=== PATIENT | male | born 1945 | race African-American/Black ===

== ENCOUNTER 2016-07-26 05:28 | Day surgery (SDC) | payer MEDICARE, OTHER ==
[2016-07-25 12:50] LABS: HEMATOCRIT 51.2 % (42.0-54.0); HEMOGLOBIN 17.9 g/dL (13.5-17.5); MCH 30.9 pg (26.0-34.0); MCV 88.3 fL (80.0-100.0); MEAN PLATELET VOLUME 9.8 fL (7.4-10.4); RBC 5.8 10x6/uL (4.20-6.10); RDW 13.5 % (11.5-14.5); WBC 6.9 10x3/uL (4.8-10.8)
[2016-07-25 12:56] LABS: ANION GAP 11.7 mmol/L (8-16); CALCIUM 9.3 mg/dL (8.5-10.1); CARBON DIOXIDE 32.8 mmol/L (21.0-32.0); CREATININE - SERUM 1.8 mg/dL (0.6-1.3); POTASSIUM - SERUM 3.5 mmol/L (3.5-5.1)
[~2016-07-26] VITALS: Ht 177.8 cm; Wt 101.8 kg
[2016-07-26] VITALS (7 sets, daily range): BP systolic 139–173; BP diastolic 40–103; BMI 32.2
--- NOTE | ~2016-07-26 | OP ---
PATIENT NAME: CITLALI BOWSER MEDICAL RECORD: [id number] :49 LOCATION:[facility] ADMISSION DATE: SURGEON: LORY ZHOU MD DATE OF OPERATION: 07/26/2016 PREOPERATIVE DIAGNOSIS: Lumbar spinal stenosis and foraminal stenosis at L4-5 right. PROCEDURES: Lumbar laminotomy, medial facetectomy and foraminotomy L4-5 right with medial facetectomy with the METRx retractor and bilateral foraminotomies at L4-5 with sublaminar decompression. DESCRIPTION AND TECHNIQUE: After induction of general endotracheal anesthesia, the patient was rolled prone on a Davon frame. Lumbar spine was prepped and draped in usual sterile fashion. Fluoroscopic x-ray and spinal needle localized at L4-5 interspace on the right side. A stab incision was carried out with a #11 blade. Series of dilators were used to advance a METRx retractor to the L4-5 interspace on the right side. That was confirmed with fluoroscopic x-ray. A microscope and Midas Oliver drill were used to perform laminotomy, medial facetectomy and foraminotomy at L4-5 on the right. Hypertrophied ligamentum flavum was removed with Cloward rongeurs. A foraminotomy was carried out with Cloward rongeurs on the right side with removal of hypertrophied ligamentum flavum. Next, the METRx retractor was tilted to the opposite side. The spinous process was undermined with the Midas-Oliver drill. Hypertrophied ligamentum flavum was moved across the midline and into the foraminotomy on the opposite side. Both L5 nerve roots and L4 nerve roots were decompressed at the conclusion of procedure. Meticulous hemostasis was maintained throughout the wound. Wound was irrigated with copious amounts of Ancef irrigant solution. The fascia was closed with a 2-0 Vicryl suture, the subdermal layer was closed with 3-0 Vicryl suture and the skin was closed with taya. Sterile dressing was applied to the wound. The patient was awakened in good condition, taken to recovery. All counts were reported as correct. Estimated blood loss was minimal. TRANSINT:[id number] Voice Confirmation ID: [id number] DOCUMENT ID: [id number] LORY ZHOU MD CC: [id number] DICTATION DATE: 09/03/161822 RISK DEVELOPER: 09/04/16 0232 [facility] [place] 07/28/16 [facility] [address] [place] [address]
[~2016-07-26 05:28] MED LIST: CO Q-10200 MG PO; DICLOFENAC SODI50 MG PO; ENDOCET 10-3251 TAB PO; FLECAINIDE ACE100 MG PO; MAXZIDE 75/501 TAB PO; NORCO 7.5/325 T1 TA1 PO; NORVASC5 MG PO; VALIUM10 MG PO; ZOCOR20 MG PO
--- NOTE | 2016-07-26 20:15 | NUR ---
PT RECEIVED FROM RECOVERY. VITAL SIGNS OBTAINED AND RECORDED. PT ALERT AND ORIENTED X4. AT BEDSIDE. PT RECEIVED FROM RECOVERY WITH RESET MERCHANDISER PUMP ORDERED 2MG Q8HR WITH NO LOCKOUT. CALLED ETHNOLOGY TEACHER NUMBER FOR DR. ZHOU TO RECEIVE CLARIFICATION, INFORMED THAT DR. BAZAN IS ETHNOLOGY TEACHER FOR DR. ZHOU, BUT TO CALL ER PHYSICIAN. CALLED ER PHYSICIAN REGARDING RESET MERCHANDISER PUMP ORDERS, SPOKE WITH DR. FARIAS WHO CHANGED ORDERS FOR RESET MERCHANDISER PUMP. PT STATES RESET MERCHANDISER PUMP TO BE EFFECTIVE. DENIES ANY NEEDS AT THIS TIME. CALL LIGHT AND H2O IN PT REACH. BED IN LOW POSITION. SIDE RAILS UP X2.
--- NOTE | 2016-07-26 21:30 | NUR ---
RECEIVED CALL FROM DR. ZHOU REGARDING PT. INFORMED DR. ZHOU OF ART PSYCHOTHERAPIST PUMP ORDER CLARIFICATION PER DR. FARIAS, NO NEW ORDERS RECEIVED REGARDING ART PSYCHOTHERAPIST PUMP. NEW ORDER RECEIVED FOR DECADRON 6MG IV Q6HR. PT NOTIFIED OF NEW ORDER.
--- NOTE | 2016-07-26 22:00 | NUR ---
PT'S REPORTS BLEEDING FROM DRESSING TO LOWER BACK. DRIED BLOOD SPOTS NOTED TO SHEETS WHERE PT WAS LAYING. NO ACTIVE BLEEDING NOTED AT THIS TIME. DRESSING REINFORCED AT THIS TIME.
[2016-07-27] VITALS (8 sets, daily range): BP systolic 118–152; BP diastolic 68–103; Ht 177.8 cm; Wt 101.8 kg
--- NOTE | 2016-07-27 07:50 | NUR ---
SPOKE WITH DR. ZHOU. STATES PATIENT NEEDS TO AMBULATE IN HALLWAYS. NEW ORDER FOR PHYSICAL THERAPY.
--- NOTE | 2016-07-27 19:49 | NUR ---
DRESSING CHANGED ON BACK SURGICAL SITE WITH A BORDER GUMIE. x2 DRESSINGS REMOVED THAT WERE MODERATELY SATURATED. FRIENDS/ FAMILY IN ROOM VISITING. NO NEEDS NOTED BY PATIENT AT THIS TIME.
--- NOTE | 2016-07-27 22:00 | NUR ---
DENIES NEEDS AT THIS TIME. DRESSING TO BACK C/D/I. CALL LIGHT IN REACH, RESPIRATIONS EVEN AND NON LABORED. WILL CONTINUE WITH PLAN OF CARE.
[2016-07-28 04:00] VITALS: BP 138/62
--- NOTE | 2016-07-28 07:00 | NUR ---
REPORT RECIEVED ASSUMED CARE. PATIENT IN BED WITH IV INTACT. NO COMPLAINTS, CALL LIGHT WITHIN REACH.
--- NOTE | 2016-07-28 08:00 | NUR ---
PATIENT UP TO SHOWER WITH RN ASSISTANCE. DRESSING COVERED AT THIS TIME. IV COVERED. NO COMPLAINTS AT THIS TIME. CALL LIGHT WITHIN REACH.
--- NOTE | 2016-07-28 08:50 | NUR ---
PATIENT DRESSING CHANGED TO BACK AT THIS TIME. INCISION INTACT. SMALL AMOUNT OF PINK DRAINAGE. NO SIGNS OF INFECTION. CALL LIGHT WITHIN REACH.
[2016-07-28 08:55] VITALS: BP 135/73
[2016-07-28 09:45] VITALS: BP 144/85
--- NOTE | 2016-07-28 12:00 | NUR ---
PATIENT RECIEVED DISCHARGE INSTRUCTIONS. VERBALIZED UNDERSTANDING. RECIEVED PRESCRIPTIONS FROM PHYSICIAN YESTERDAY. TOOK THEM HOME. IV REMOVED WITH CATH TIP INTACT. NO QUESTIONS AT THIS TIME. CALL LIGHT WITHIN REACH.
--- NOTE | 2016-07-28 13:37 | NUR ---
ORDER RECEIVED: Hand written order for rolling walker received. CM received call from Susannah GRIGGS stating patient had an order for walker and no preference for provider. CM contacted [facility] and is waiting a return call for delivery of walker. Za Jones RN, [facility] [phone]
--- NOTE | 2016-07-28 14:03 | NUR ---
Patient to go to [employer] to pickle solution maker rolling walker as [employer] is having trouble getting in touch with their custom van converter. Spouse is transporting patinet home and will be happy to go by [facility] to get the walker. Spoke to Mary Lou GRIGGS and infomred her of this and she will go dc the patient. Za Jones RN, [facility] [phone]
== END 2016-07-28 15:28 | disposition home or self-care (01) ==
LOC: D.MS 05:28 → D.OPS 05:28 → D.PAN 13:30 → D.OPS 14:00 → D.MS 18:52 → D.OPS 07-28 15:28
PROVIDERS: Anesthesiology
DX: M48.06 Spinal stenosis, lumbar region (principal); Z01.812 Encounter for preprocedural laboratory examination

== ENCOUNTER 2017-03-05 01:31 | Inpatient (IN) | payer MEDICARE, OTHER ==
[~2017-03-05] VITALS: Ht 177.8 cm; Wt 89.8 kg
[2017-03-05 02:05] LABS: BASOPHILS 0.2 % (0-2); EOSINOPHILS 3.8 % (0-7); HEMATOCRIT 37.9 % (42.0-54.0); IMMATURE GRANULOCYTES 0.3 % (0-5); LYMPHOCYTES 28.2 % (15-50); MCH 29.2 pg (26.0-34.0); MCHC 34.3 g/dL (31.0-37.0); MCV 85.2 fL (80.0-100.0); MONOCYTES 6.1 % (2-11); NEUTROPHILS 61.4 % (40-80); PLATELET COUNT 230 10x3/uL (130-400); RBC 4.45 10x6/uL (4.20-6.10); RDW 13.8 % (11.5-14.5); WBC 6.3 10x3/uL (4.8-10.8)
[2017-03-05 02:16] LABS: ALBUMIN 2.9 g/dL (3.4-5.0); ANION GAP 12.6 mmol/L (8-16); BILIRUBIN - TOTAL 0.41 mg/dL (0.2-1.3); CALCIUM 8.8 mg/dL (8.5-10.1); CARBON DIOXIDE 26.5 mmol/L (21.0-32.0); CREATININE - SERUM 1.5 mg/dL (0.6-1.3); POTASSIUM - SERUM 3.1 mmol/L (3.5-5.1); PROTEIN - SERUM 7.1 g/dL (6.4-8.2)
[2017-03-05 03:17] LABS: CREATINE KINASE 156 UL (21-232); PRO BNP 12 pg/mL (0-125); TROPONIN-I < 0.017 ng/mL (0.000-0.060)
--- NOTE | 2017-03-05 05:58 | NUR ---
REPORT RECEIVED FROM CHACE GRIGGS FROM ER @ 05:50 A.M. AWAITING PTS ARRIVAL.
[2017-03-05 07:31] VITALS: BP 143/92
[2017-03-05 08:09] VITALS: BP 143/92; BMI 28.4
[2017-03-05 10:58] VITALS: BP 139/58
--- NOTE | 2017-03-05 11:09 | NUR ---
ECHO DONE AT BS. [id number] SR. AT BS. WILL CONT. PLAN OF CARE.
[2017-03-05 12:54] VITALS: Ht 177.8 cm; Wt 89.8 kg
--- NOTE | 2017-03-05 13:00 | NUR ---
LEAVING FOR MRI BY W/C. PRE-MED GIVEN.
[2017-03-05 15:12] VITALS: BP 136/89
--- NOTE | 2017-03-05 16:09 | NUR ---
BILAT SCDS AOOLIED.
--- NOTE | 2017-03-05 21:08 | NUR ---
PT AWAKE, ALERT, ORIENTED, LYING IN BED, FAMILY AT BEDSIDE, NO NEEDS AT THIS SALO. PT IS ASKING FOR A CONSULT TO DR. ZHOU R/T HIS CHRONIC BACK PROBLEMS. WILL CONTINUE TO MONITOR CLOSELY. BED LOW, CALL LIGHT IN REACH, SIDE RAILS X 2, HOB 30 DEGREES, SCD'S ON.
[2017-03-05 21:32] VITALS: BP 150/84
--- NOTE | 2017-03-06 01:28 | NUR ---
PT CALLING FOR TORO MCGOWAN, STATES HIS PAIN IS POORLY CONTROLLED EVEN AFTER ADJUSTING THE DOSING TIMES MORE FREQUENTLY. IS AT BEDSIDE. NO OTHER NEEDS. CONTINUE TO MONITOR CLOSELY. I DID GIVE PT A URINAL SO THAT HE WILL NOT HAVE TO AMBULATE SO MUCH DURING THE NIGHT. BED LOW, CALL LIGHT IN REACH, SIDE RAILS X 2, HOB 20 DEGREES.
--- NOTE | 2017-03-06 01:39 | NUR ---
PT HAD O2 VIA NC ON FROM DAY SHIFT R/T SHALLOW BREATHING AFTER RECEIVING VALIUM IVP FOR HIS MRI SCANS. PT IS BREATHING WNL, AND O2 SATS REMAIN WNL ON RA. WILL CONTINUE TO MONITOR CLOSELY.
[2017-03-06 02:21] VITALS: BP 147/94
--- NOTE | 2017-03-06 05:48 | NUR ---
PT RESTING COMFORTABLY, PRN NORCO GIVEN WITH 0600 PROTONIX. PT STATES PAIN REMAINS POORLY CONTROLLED ON THIS DOSE. NO NEEDS. URINAL EMPTIED, HOWEVER, PT WAS VOIDING INTO TOILET PRIOR TO USING THE URINAL SO I&O INCOMPLETE AT THIS TIME. CONTINUE TO MONITOR CLOSELY.
[2017-03-06 05:55] LABS: BASOPHILS 0 % (0-2); HEMATOCRIT 41.6 % (42.0-54.0); HEMOGLOBIN 14.2 g/dL (13.5-17.5); IMMATURE GRANULOCYTES 0.1 % (0-5); LYMPHOCYTES 20.1 % (15-50); MCH 28.9 pg (26.0-34.0); MCHC 34.1 g/dL (31.0-37.0); MCV 84.7 fL (80.0-100.0); MEAN PLATELET VOLUME 9.3 fL (7.4-10.4); MONOCYTES 7.6 % (2-11); NEUTROPHILS 69.2 % (40-80); PLATELET COUNT 250 10x3/uL (130-400); RBC 4.91 10x6/uL (4.20-6.10); WBC 7.1 10x3/uL (4.8-10.8)
[2017-03-06 06:05] LABS: ANION GAP 12.1 mmol/L (8-16); CALCIUM 8.9 mg/dL (8.5-10.1); CARBON DIOXIDE 27.5 mmol/L (21.0-32.0); CREATININE - SERUM 1.5 mg/dL (0.6-1.3); POTASSIUM - SERUM 3.6 mmol/L (3.5-5.1)
[2017-03-06 06:19] VITALS: BP 138/84
[2017-03-06 07:42] VITALS: BP 153/96
--- NOTE | 2017-03-06 11:51 | NUR ---
TELEMETRY SR. AT BS. CALL LIGHT IN REACH. WILL CONT. PLAN OF CARE.
[2017-03-06 12:00] VITALS: BP 154/95
[2017-03-06 15:39] VITALS: BP 145/94
--- NOTE | 2017-03-06 19:38 | NUR ---
PT AWAKE, ALERT, ORIENTED, LYING IN BED, AT BEDSIDE. PT IS ASKING TO GET IN SHOWER AT THIS TIME. NO OTHER NEEDS. CONTINUE TO MONITOR CLOSELY.
[2017-03-06 21:12] VITALS: BP 162/66
[2017-03-07 01:05] VITALS: BP 146/94
--- NOTE | 2017-03-07 01:34 | NUR ---
PT RESTING COMFORTABLY, EASILY ROUSABLE TO VERBAL STIMULI, NO NEEDS. CONTINUE TO MONITOR CLOSELY.
[2017-03-07 05:22] VITALS: BP 145/96
[2017-03-07 06:00] LABS: ANION GAP 16.1 mmol/L (8-16); CALCIUM 9.5 mg/dL (8.5-10.1); CARBON DIOXIDE 23.6 mmol/L (21.0-32.0); CREATININE - SERUM 1.3 mg/dL (0.6-1.3); POTASSIUM - SERUM 3.7 mmol/L (3.5-5.1)
[2017-03-07 06:06] LABS: HEMATOCRIT 43.8 % (42.0-54.0); LYMPHOCYTES 9.5 % (15-50); MCH 28.4 pg (26.0-34.0); MCHC 34.2 g/dL (31.0-37.0); MCV 82.8 fL (80.0-100.0); MEAN PLATELET VOLUME 9.1 fL (7.4-10.4); NEUTROPHILS 88.3 % (40-80); RBC 5.29 10x6/uL (4.20-6.10); RDW 14.5 % (11.5-14.5); WBC 7.6 10x3/uL (4.8-10.8)
[2017-03-07 06:08] LABS: PLATELET COUNT 310 10x3/uL (130-400)
[2017-03-07 08:00] VITALS: BP 138/92
[2017-03-07 12:00] VITALS: BP 144/75
[2017-03-07 16:00] VITALS: BP 146/91
--- NOTE | 2017-03-07 19:19 | NUR ---
ASSESSMENT COMPLETE, A&O, RESPERATIONS EVEN ON RA. IV TO RIGHT FOREARM SL, SITE CLEAN AND DRY. PT DENIES PAIN OR NEEDS, AT THIS TIME, BED LOW, CL IN REACH.
[2017-03-07 20:00] VITALS: BP 133/88
--- NOTE | 2017-03-07 21:58 | NUR ---
HS MEDS GIVEN WITH FRESH ICE WATER, BS 151, NO COVERAGE GIVEN AT THIS TIME, SINCE PT NOT ON INSULIN AT HOME, PT WAS WORRIED ABOUT BS GETTING TO LOW DURING THE NIGHT. PT DENIES PAIN OR OTHER NEEDS AT THIS TIME, BED LOW, CL IN REACH. AT BED SIDE.
[2017-03-08] VITALS: BP 136/84
--- NOTE | 2017-03-08 03:38 | NUR ---
GINNING OPERATOR AT BED SIDE, BATH AND LINEN CHANGE COMPELTE.
[2017-03-08 04:00] VITALS: BP 127/79
[2017-03-08 05:17] LABS: BASOPHILS 0.1 % (0-2); EOSINOPHILS 0 % (0-7); HEMATOCRIT 42.8 % (42.0-54.0); HEMOGLOBIN 15.2 g/dL (13.5-17.5); IMMATURE GRANULOCYTES 0.3 % (0-5); LYMPHOCYTES 6.8 % (15-50); MCH 29.5 pg (26.0-34.0); MCHC 35.5 g/dL (31.0-37.0); MCV 83.1 fL (80.0-100.0); MEAN PLATELET VOLUME 9.4 fL (7.4-10.4); MONOCYTES 2.2 % (2-11); NEUTROPHILS 90.6 % (40-80); PLATELET COUNT 298 10x3/uL (130-400); RBC 5.15 10x6/uL (4.20-6.10); RDW 13.7 % (11.5-14.5)
[2017-03-08 05:24] LABS: WBC 14.3 10x3/uL (4.8-10.8)
[2017-03-08 05:41] LABS: CALCIUM 8.9 mg/dL (8.5-10.1); CARBON DIOXIDE 26.7 mmol/L (21.0-32.0); CREATININE - SERUM 1.5 mg/dL (0.6-1.3); POTASSIUM - SERUM 3.7 mmol/L (3.5-5.1)
--- NOTE | 2017-03-08 06:51 | NUR ---
RN NOTE: AGREE WITH RN NOTE. PT REMAINS STABLE. SLEEPING COMFORTABLY AT PRESENT. NO COMPLAINTS. VSS. NO EVIDENCE OF DISTRESS. WILL CONT MONITOR.
[2017-03-08 07:54] VITALS: BP 137/83
[2017-03-08] MEDS ORDERED: NEURONTIN 300300 MG PO (11:58)
[2017-03-08] MEDS ORDERED: HYDROCODON-ACE1 EAC7 PO (12:01)
[2017-03-08] MEDS ORDERED: PREDNISONE10 MG PO (12:27)
[2017-03-08 12:30] VITALS: BP 145/98
--- NOTE | 2017-03-08 14:34 | NUR ---
IV AND TELEMETRY DCD. DC PLANS GIVEN. UNDERSTANDING VOICED. ESCORTED TO CAR BY W/C.
--- NOTE | 2017-03-18 12:14 | EC ---
PATIENT:CITLALI BOWSER DATE OF SERVICE: 03/05/17 SEX: M MEDICAL RECORD: [id number] DATE OF : 49 LOCATION:D. D.212 AGE OF PATIENT: 71 ADMISSION DATE: 03/05/17 REFERRING PHYSICIAN: INTERPRETING PHYSICIAN: ALDAIR PURI MD ECHOCARDIOGRAM REPORT ECHO CHARGES 4 ECHO COMPLETE CLINICAL DIAGNOSIS: TIA ECHOCARDIOGRAPHIC MEASUREMENTS (adult normal given) AC root (d.<3.7cm) 2.7 cm LV Septum d (<1.2 cm> 1.6 cm Valve Excursion 1.9 cm LV Septum (systole) 2.4 cm Left Atria (s.<4.0cm> 3.8 cm LVPW d(<1.2cm) 1.5 cm RV (d.<2.3cm) 2.7 cm LVPW (sytole) 2.2 cm LV diastole(<5.6CM) 4.5 cm MV E-F(>70mm/sec) cm LV systole 1.9 cm LVOT Diameter 1.9 cm MV exc.(>10mm) cm Est.ejection fraction (50-75%) % Pericardial Effusion N DOPPLER: LVIT cm/sec A 61.0 cm/sec E 83.0 cm/sec LA cm/sec RVSP 30.0 mmHg LVOT 104 cm/sec AOP1/2T m/s Asc. Ao 212 cm/sec RVOT 74.0 cm/sec RA cm/sec PA 100 cm/sec AV Gradient Peak 18.0 mmHg AV Mean 9.2 mmHg AV Area 1.5 cm MV Gradient Peak 3.7 mmHg MV Mean 1.5 mmHg MV Area cm COMMENTS: Gear Generator Set Up Operator: Christopher VILLALTAOE Zookeeper: 1 Dr. Puri TAPE# PACS DATE OF SERVICE: 03/05/2017 DATE OF SERVICE: 03/05/2017 ECHOCARDIOGRAM FINDINGS: 1. Left ventricular chamber size is within normal limits. Left ventricular systolic function is normal. Overall ejection fraction is estimated at 60%. 2. Left atrium, right atrium and right ventricular chamber sizes are within ECHOCARDIOGRAM REPORT [id number] CITLALI BOWSER normal limits. 3. Valvular structures have normal structure and motion. 4. Doppler interrogation only reveals mild tricuspid regurgitation. No other valvular insufficiency or stenosis and pulmonary systolic pressure is normal estimated at 30 mmHg. 5. No evidence of pericardial effusion or left ventricular thrombus. TRANSINT:[id number] Voice Confirmation ID: [id number] DOCUMENT ID: [id number] ALDAIR PURI MD at 1214 CC: [id number] DICTATION DATE: 03/06/17 1239 ARCHITECTURAL ADMINISTRATIVE ASSISTANT: 03/06/17 1448 DIS IN 03/08/17 [id number] [place] [address]
[2017-04-14] MEDS ORDERED: FORTAMET500 MG/BOT PO (15:00)
[2017-04-14] MEDS ORDERED: SUPER B COMPLE150 MG PO (15:01)
[2017-04-14] MEDS ORDERED: VITAMIN D5000 UNIT PO (15:01)
== END 2017-03-08 14:35 | disposition home or self-care (01) | DRG 53 ==
LOC: D.ER 01:31 → D.M2 02:58 → D.SDCHOLD 03-06 09:54 → D.M2 03-06 09:54
PROVIDERS: Family Medicine; ADMIT Family Medicine
DX: S14.126A Central cord syndrome at C6 level of cervical spinal cord, initial encounter (principal); W19.XXXA Unspecified fall, initial encounter; E87.6 Hypokalemia; E78.5 Hyperlipidemia, unspecified; E11.22 Type 2 diabetes mellitus with diabetic chronic kidney disease; E11.65 Type 2 diabetes mellitus with hyperglycemia; I12.9 Hypertensive chronic kidney disease with stage 1 through stage 4 chronic kidney disease, or unspecified chronic kidney disease; N18.9 Chronic kidney disease, unspecified; G47.33 Obstructive sleep apnea (adult) (pediatric); M54.12 Radiculopathy, cervical region; M54.16 Radiculopathy, lumbar region; M48.061 Spinal stenosis, lumbar region without neurogenic claudication; R40.2412 Glasgow coma scale score 13-15, at arrival to emergency department

== ENCOUNTER 2017-04-15 05:25 | Inpatient (IN) | payer MEDICARE, OTHER ==
[2017-04-14 15:57] LABS: HEMATOCRIT 46.2 % (42.0-54.0); HEMOGLOBIN 16.4 g/dL (13.5-17.5); MCH 30.1 pg (26.0-34.0); MCHC 35.5 g/dL (31.0-37.0); MCV 84.9 fL (80.0-100.0); MEAN PLATELET VOLUME 9.4 fL (7.4-10.4); RBC 5.44 10x6/uL (4.20-6.10); RDW 15.1 % (11.5-14.5); WBC 5.6 10x3/uL (4.8-10.8)
[2017-04-14 16:29] LABS: ANION GAP 16.1 mmol/L (8-16); CALCIUM 10.1 mg/dL (8.5-10.1); CARBON DIOXIDE 26.5 mmol/L (21.0-32.0); CREATININE - SERUM 1.4 mg/dL (0.6-1.3); POTASSIUM - SERUM 3.6 mmol/L (3.5-5.1)
[2017-04-15] VITALS (17 sets, daily range): BP systolic 127–163; BP diastolic 77–103; BMI 27.4; BMI 28.1
[~2017-04-15] VITALS: Ht 177.8 cm; Wt 88.0 kg
--- NOTE | ~2017-04-15 | OP ---
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 PROCEDURE: Anterior cervical discectomy and fusion with removal of osteophytes and decompression of spinal cord at C4-C5 and C5-C6, Zavation anterior cervical plate and screws, ViaCell bone stem cell allograft, and removal of osteophytes. DESCRIPTION AND TECHNIQUE: After induction of general endotracheal anesthesia, the patient was positioned supine on the operating table. Neck was prepped and draped in the usual sterile fashion. Fluoroscopic x-ray and freer localized the C4-C5 interspace. A transverse skin incision was carried out from the midline to the sternocleidomastoid muscle. The platysma was divided with Bovie cautery. Using blunt and sharp dissection with Metzenbaum scissors, I proceeded in an avascular plane medial to the carotid sheath. The C4-C5 interspace was confirmed with fluoroscopic x-ray and a spinal needle. A self-retaining retractor was placed deep to the longus colli muscles. Monument distracting pins were placed at the bodies of C4, C5, and C6. Disc space was incised at C4-C5 and C5-C6 with a #11 blade. Series of curettes and pituitary rongeurs were used to remove the disc material at each interspace. The bony endplates were prepared with curettes. The posterior longitudinal ligament was removed with Cloward rongeurs. Foraminotomies were carried out on both sides of the C4-C5 and C5-C6. The dura was decompressed well. A PEEK interbody cage was placed in each separate disc space under distraction. Prior to this was filled with ViaCell bone stem cell allograft. Next, a separate anterior cervical plate was used to span the C4, C5 and C6 vertebral bodies. An 18 mm screws were placed through the holes of the plate. The locking cams were tightened down over the screw heads. Good position of the hardware was confirmed with fluoroscopic x-ray. Meticulous hemostasis was maintained throughout the wound. The wound was irrigated with copious amounts of Ancef irrigant solution. The platysma and subdermal layer were closed with interrupted 3-0 Vicryl suture. The skin was reapproximated with 5-0 subcuticular stitch. Skin edges were reapproximated with Steri-Strips and benzoin. Sterile dressing was applied to the wound. The patient was awakened in good condition and taken to recovery. All counts were reported as correct. Estimated blood loss was 30 cc. TRANSINT:[id number] Voice Confirmation ID: [id number] DOCUMENT ID: [id number] LORY ZHOU MD at 1546 CC: [id number] DICTATION DATE: 05/13/17 1153 AIRCRAFT ELECTRONICS TECHNICAL OFFICER: 05/13/17 1224 DIS IN 04/16/17 [id number] [place] [address]
[~2017-04-15 05:25] MED LIST changes: +FORTAMET500 MG/BOT PO; +HYDROCODON-ACE1 EAC7 PO; +NEURONTIN 300300 MG PO; +PREDNISONE10 MG PO; +SUPER B COMPLE150 MG PO; +VITAMIN D5000 UNIT PO
[2017-04-16] VITALS (10 sets, daily range): BP systolic 118–152; BP diastolic 74–86; Ht 177.8 cm; Wt 88.0 kg
[2017-04-16 07:59] LABS: BASOPHILS 0 % (0-2); EOSINOPHILS 0.2 % (0-7); HEMATOCRIT 39.8 % (42.0-54.0); HEMOGLOBIN 13.9 g/dL (13.5-17.5); IMMATURE GRANULOCYTES 0.1 % (0-5); LYMPHOCYTES 19.8 % (15-50); MCH 29.5 pg (26.0-34.0); MCHC 34.9 g/dL (31.0-37.0); MCV 84.5 fL (80.0-100.0); MONOCYTES 11.4 % (2-11); NEUTROPHILS 68.5 % (40-80); RBC 4.71 10x6/uL (4.20-6.10); RDW 14.9 % (11.5-14.5)
[2017-04-16 08:02] LABS: PLATELET COUNT 203 10x3/uL (130-400); WBC 8.6 10x3/uL (4.8-10.8)
[2017-04-16 08:10] LABS: ANION GAP 10.6 mmol/L (8-16); CALCIUM 8.5 mg/dL (8.5-10.1); CARBON DIOXIDE 27.5 mmol/L (21.0-32.0); CREATININE - SERUM 1.3 mg/dL (0.6-1.3); POTASSIUM - SERUM 3.1 mmol/L (3.5-5.1)
== END 2017-04-16 14:11 | disposition home or self-care (01) | DRG 473 ==
LOC: D.CVICU 05:25 → D.SDCHOLD 05:25 → D.CVICU 10:45
PROVIDERS: Anesthesiology; Neurological Surgery
PROC: 0RG20A0 Fusion of 2 or more Cervical Vertebral Joints with Interbody Fusion Device, Anterior Approach, Anterior Column, Open Approach (ICD-10-PCS; principal; 2017-04-15 07:30)
PROC: 0RB30ZZ Excision of Cervical Vertebral Disc, Open Approach (ICD-10-PCS; 2017-04-15 07:30)
DX: M48.02 Spinal stenosis, cervical region (principal); I25.10 Atherosclerotic heart disease of native coronary artery without angina pectoris; I10 Essential (primary) hypertension; E11.9 Type 2 diabetes mellitus without complications; G47.33 Obstructive sleep apnea (adult) (pediatric)

== ENCOUNTER → 2018-03-16 07:15 | Outpatient (CLI) | payer MEDICARE, OTHER ==
[2017-04-16 10:32] VITALS: BMI 27.8
== END | disposition home or self-care (01) ==
LOC: D.MRI 07:00
DX: M54.16 Radiculopathy, lumbar region (principal)

== ENCOUNTER → 2018-05-14 06:41 | Outpatient (CLI) | payer MEDICARE, BC ==
[2017-04-16 10:32] VITALS: BMI 27.8
== END | disposition home or self-care (01) ==
LOC: D.MRI 06:41
DX: M54.12 Radiculopathy, cervical region (principal)